=== PATIENT | male | born 1995 | race Caucasian/White ===

== ENCOUNTER 2017-03-15 14:28 | Emergency (ER) | payer SELFPAY ==
[2017-03-15 15:41] LABS: HEMOGLOBIN 16.7 gm/dl (14.0-17.5); RED BLOOD COUNT 5.38 M/UL (4.20-5.50); WHITE BLOOD COUNT 5.9 K/UL (4.5-11.0)
[2017-03-15 15:59] LABS: BUN/CREATININE RATIO 17 (0-10)
== END 2017-03-15 17:57 | disposition home or self-care (01) ==
LOC: ER1 14:28
PROVIDERS: Emergency Medicine
DX: N50.812 Left testicular pain (principal); N50.811 Right testicular pain; I88.0 Nonspecific mesenteric lymphadenitis; F17.200 Nicotine dependence, unspecified, uncomplicated; Z88.0 Allergy status to penicillin
CPT/HCPCS: 36415; 76870; 80053; 81001; 83690; 85025; 96374; 96375; 99284; J2270; J2405